=== PATIENT | female | born 1975 | race Caucasian/White ===

== ENCOUNTER → 2017-05-16 | Outpatient (CLI) | payer OTHER ==
--- NOTE | 2017-05-21 19:06 | EEG ---
[address] [address] EEG STUDY REPORT Name: PAUL ANDREW Room: [facility]#: [id number] Admission: 05/16/17 Attend Phys: Ricardo Alves MD Discharge: Date of : 77 Report #: [id number] THIS REPORT FOR: //name// CC: Carolyn Alves DATE OF SERVICE: 05/16/2017 This patient is being evaluated for an episode of syncope. EEG was done to evaluate the possibility of seizure. EEG was done by placing the electrodes by standard 10-20 system of electrode placement. Both referential and sequential montages were used for recording. Background activity is about 11 Hz and 40 microvolts. The patient goes to sleep that is associated with bilaterally symmetrical slowing, vertex sharp waves as well as sleep spindle and K-complexes. Photic stimulation is unremarkable. Throughout the record, no active epileptiform activity was noticed. IMPRESSION: This patient's EEG is within normal limit. Thank you very much for this referral. <ELECTRONICALLY SIGNED> By: Ricardo Alves MD 05/21/17 [id number] Alves MD /nt
== END ==
LOC: M.CRD 05-07 08:46 → M.MRI 05-14 13:30 → M.CRD 05-14 14:30
DX: R55 Syncope and collapse (principal)

== ENCOUNTER → 2017-06-11 | Outpatient (CLI) | payer OTHER ==
[2017-06-11] VITALS (11 sets, daily range): BP systolic 86–125; BP diastolic 37–73
--- NOTE | 2017-06-11 14:30 | 2DMMODE ---
[place] [address] 2 D/M-MODE ECHOCARDIOGRAM Name: PAUL ANDREW Room: [facility]#: [id number] Admission: 06/11/17 Attend Phys: David Smallwood MD Discharge: Date of : 77 Date of Service: 06/11/17 1429 Report #: [id number] THIS REPORT FOR: //name// APPROVED REPORT Study performed: 06/11/2017 09:06:41 EXAM: Comprehensive 2D, Doppler, and color-flow Echocardiogram Patient Location: Out-Patient BSA: 1.77 HR: 60 bpm BP: 100/68 mmHg Other Information Study Quality: Excellent Indications Syncope 2D Dimensions LVEF(%): 48.51 (>50%) IVSd: 9.00 (7-11mm) LVOT Diam: 19.45 (18-24mm) LVDd: 38.86 mm PWd: 8.16 (7-11mm) Ascending Ao: 27.61 (22-36mm) LVDs: 29.52 (25-40mm) Aortic Root: 21.18 mm Zayas's LVEF: 48.51 % Volumes Left Atrial Volume (Systole) LA ESV Index: 13.00 mL/m2 Aortic Valve AoV Peak Flaco.: 1.07 m/s AO Peak Gr.: 4.57 mmHg LVOT Max P.13 mmHg AO Mean Gr.: 2.62 mmHg LVOT Mean P.29 mmHg LVOT Max V: 0.88 m/s AO V2 VTI: 21.18 cm LVOT Mean V: 0.51 m/s LINDA (VTI): 2.37 cm2 LVOT V1 VTI: 16.90 cm Mitral Valve E/A Ratio: 1.17 MV Decel. Time: 205.12 ms MV E Max Flaco.: 0.66 m/[place] [address] 2 D/M-MODE ECHOCARDIOGRAM Name: PAUL ANDREW Room: [facility]#: [id number] Admission: 06/11/17 Attend Phys: David Smallwood MD Discharge: Date of : 77 Date of Service: 06/11/17 1429 Report #: [id number] MV PHT: 59.49 ms MVA (PHT): 3.70 cm2 TDI E/Lateral E': 3.88 E/Medial E': 4.40 Medial E' Flaco.: 0.15 m/s Lateral E' Flaco.: 0.17 m/s Pulmonary Valve PV Peak Flaco.: 0.95 m/s PV Peak Gr.: 3.61 mmHg Tricuspid Valve TR Peak Gr.: 16.80 mmHg RVSP: 21.80 mmHg Left Ventricle The left ventricle is normal size. There is normal LV segmental wall motion. There is normal left ventricular wall thickness. Left ventricular systolic function is normal. The left ventricular ejection fraction is within the normal range. LVEF is 50-55%. The left ventricular diastolic function is normal. Right Ventricle The right ventricle is normal size. The right ventricular systolic function is normal. Atria The left atrium size is normal. The right atrium size is normal. Aortic Valve The aortic valve is normal in structure. No aortic regurgitation is present. There is no aortic valvular stenosis. Mitral Valve The mitral valve is normal in structure. Mild mitral regurgitation. No evidence of mitral valve stenosis. Tricuspid Valve The tricuspid valve is normal in structure. Mild tricuspid regurgitation. The RVSP is __21.8 mmHg. Pulmonic Valve The pulmonary valve is normal in structure. There is no pulmonic valvular regurgitation. [place] [address] 2 D/M-MODE ECHOCARDIOGRAM Name: PAUL ANDREW Room: [facility]#: [id number] Admission: 06/11/17 Attend Phys: David Smallwood MD Discharge: Date of : 77 Date of Service: 06/11/17 1429 Report #: [id number] The aortic root is normal in size. IVC is normal in size and collapses with >50% inspiration Pericardium There is no pericardial effusion. <Conclusion> Left ventricular systolic function is normal. The left ventricular ejection fraction is within the normal range. <ELECTRONICALLY SIGNED> By: David Smallwood MD, FACC 06/11/17 1429 28 [id number] David Smallwood MD, FACC /INF
--- NOTE | 2017-06-13 18:15 | PROC ---
[address] [address] PROCEDURE REPORT Name: PAUL ANDREW Room: [facility]#: [id number] Admission: 06/11/17 Attend Phys: David Smallwood MD, F Discharge: Date of : 77 Report #: [id number] THIS REPORT FOR: //name// CC: Carolyn Gong MD DATE OF SERVICE: 06/11/2017 TYPE OF PROCEDURE: Head upright tilt table testing using nitroglycerin. INDICATIONS: Head upright tilt table testing was requested in this patient with history of syncope. DESCRIPTION OF PROCEDURE: The patient was placed in a supine position on a tilt table and resting blood pressure and heart rate were obtained and recorded. The patient had ECG monitoring throughout the study. The patient was then placed in the head upright position for 20 minutes. She was then given nitroglycerin 0.4 mg sublingually and monitored. FINDINGS: In the supine position at baseline, the patient had a blood pressure of 110/62 with a pulse of 64 and she was in sinus rhythm. The patient was then placed in the 70-degree head upright position on the tilt table. At this time, the patient denied any complaints. After 5 minutes in the upright position, the patient had a blood pressure of 110/74 with a pulse of 74, and she had no complaints. She was in sinus rhythm. After 10 minutes, the patient complained of her fingers tingling. After 20 minutes in the head upright position, the patient had a heart rate of 94, blood pressure 114/66 and she was in sinus rhythm. The patient was then given nitroglycerin 0.4 mg sublingually. Five minutes later, the patient was noted to have sinus tachycardia 110 beats per minute. Her blood pressure noted to be 92/64. Ten minutes after receiving the sublingual nitroglycerin, the patient lost consciousness and she was placed back into the supine position, at which time she was noted to have a blood pressure of 86/34, pulse 64. The patient then awakened and had no significant complaints. 15 minutes after nitroglycerin, the patient had no complaints and had a pulse of 66, blood pressure 104/58. The patient remained in sinus rhythm. IMPRESSION: 1. Positive head upright tilt table testing using sublingual nitroglycerin with evidence [place] [address] PROCEDURE REPORT Name: LORREIPAUL Minerva Room: [facility]#: [id number] Admission: 06/11/17 Attend Phys: David Smallwood MD, F Discharge: Date of : 77 Report #: [id number] 2. The patient had a predominant vasodepressor response and there was no significant cardioinhibitory response noted. <ELECTRONICALLY SIGNED> By: David Smallwood MD, [facility] 06/13/17 1815 1441 [id number] Smallwood MD, FACC /nt
== END ==
LOC: M.CRD 08:00
DX: R55 Syncope and collapse (principal)